=== PATIENT | male | born 1995 | race Caucasian/White ===

== ENCOUNTER 2018-01-09 06:04 | Emergency (ER) | payer OTHER ==
[~2018-01-09] VITALS: Ht 162.6 cm; Wt 64.5 kg
[2018-01-09 06:12] VITALS: Ht 162.6 cm; Wt 64.5 kg
[2018-01-09] MEDS ORDERED: ACETAMINOPHEN 500 MG TAB PO STA (06:21)
[2018-01-09] MEDS ORDERED: ACETAMINOPHEN 500 MG TAB PO ONE (06:23)
[2018-01-09] MEDS ORDERED: ONDANSETRON 4MG OD TAB PO STA (06:42)
[2018-01-09] MEDS ORDERED: KETOROLAC TROMETHAMINE 60 MG/2 ML VIAL IM STA (06:42)
[2018-01-09] MEDS ORDERED: COUGH DROP (SUGAR FREE) LOZ 24 LOZ/1 BOX LOZ STA (06:42)
[2018-01-09 06:54] LABS: INFLUENZA B ANTIGEN Neg for Influ B (NEG)
--- NOTE | 2018-01-09 06:55 | DIAGNOSTIC IMAGING REPORT ---
CHEST ONE VIEW PORTABLE CLINICAL HISTORY: Fever, cough, coarse breath sounds. COMPARISON STUDY: No previous studies for comparison. FINDINGS: The cardiac and mediastinal contours are normal. There is no evidence of focal pulmonary consolidation. There is no evidence of failure. No pleural effusions are visualized.[ There are minimal basilar atelectatic changes. IMPRESSION: No active disease in the chest. Electronically signed by: Daniel Garay M.D. 01/09/2018 6:54 AM Dictated Date/Time: 01/09/2018 6:53 AM
--- NOTE | 2018-01-09 06:59 | EMERGENCY ROOM VISIT NOTE ---
History Report prepared by Yayo: Josie Gold Under the Supervision of: Dr. Rodney Fuentes M.D. First contact with patient: 06:33 Chief Complaint: FLU LIKE SX Stated Complaint: SORE THROAT,WHEEZING,HEADACHE,FEVER,CHILLS,NAUSEA History of Present Illness The patient is a 22 year old white male with a past medical history of umbilical hernia who presents to the ED with a cc of flu-like symptoms beginning Saturday, five days ago. Positive nausea, nasal drainage, sore throat , productive cough, body aches, and chills. Negative coughing up blood, vomiting , abdominal pain, leg swelling. The patient reports his symptoms worsened over the past 24 hours. He notes using Dleisa Cory Cold and Flu and a Zycan tablet with minimal relief. The patient reports occasional alcohol use, but denies any drug or tobacco use. The patient is a [employer] student. He reports sick contact over the past weekend. Source of History: patient Onset: five days ago Position: other (generalized) Quality: other (flu like symptoms) Timing: worsening Associated Symptoms: + chills, + sorethroat, + cough, + nausea, No vomiting , No abdominal pain Review of Systems See HPI for pertinent positives and negatives. A total of ten systems were reviewed and were otherwise negative. Past Medical & Surgical Medical Problems: (1) Umbilical hernia Family History Patient reports no known family medical history. Social History Smoking Status: Never Smoker Alcohol Use: occasionally Drug Use: none Housing Status: lives with roommate Occupation Status: [employer] student Current/Historical Medications Scheduled Prednisone (Prednisone), 50 MG PO DAILY Scheduled PRN Ondansetron Hcl (Zofran), 1 TAB PO Q4H PRN for Nausea Allergies Coded Allergies: No Known Allergies (Unverified , 01/09/18) Physical Exam Vital Signs Date Time Temp Pulse Resp B/P (MAP) Pulse Ox O2 Delivery O2 Flow Rate FiO2 01/09/18 06:12 38.9 101 16 108/55 95 Room Air Physical Exam GENERAL: Awake, alert, well-appearing, NAD HENT: Normocephalic, atraumatic. Posterior pharynx clear, no tonsillar or uvular swelling/deviation. EYES: Normal conjunctiva. Sclera non-icteric. NECK: Supple. No nuchal rigidity. FROM. RESPIRATORY: Mild coarse BS R chest, no wheezing CARDIAC: RRR, no MRG ABDOMEN: Soft, NTND, BS+ MSK: No chest wall TTP, no LE edema NEURO: GCS 15, CN 2-12 intact, moves all 4s on command SKIN: No rash or jaundice noted. Medical Decision & Procedures Laboratory Results Test 01/09/18 06:27 Influenza Type A Antigen Neg for Influ A (NEG) Influenza Type B Antigen Neg for Influ B (NEG) Laboratory results reviewed by me Medications Administered Medications (Trade) Dose Ordered Sig/Keny Route Start Time Stop Time Status Last Admin Dose Admin Acetaminophen (Tylenol Tab) 1,000 mg STK-MED ONCE PO 01/09/18 06:23 01/09/18 06:24 DC 01/09/18 06:26 1,000 MG Ketorolac Tromethamine (Toradol Inj) 60 mg NOW STAT IM 01/09/18 06:42 01/09/18 06:44 DC 01/09/18 06:57 60 MG Ondansetron HCl (Zofran Odt) 4 mg NOW STAT PO 01/09/18 06:42 01/09/18 06:44 DC 01/09/18 06:53 4 MG Menthol (Nice Carlos) 1 carlos NOW STAT CARLOS 01/09/18 06:42 01/09/18 06:44 DC 01/09/18 06:54 1 CARLOS ED Course 0637: The patient was evaluated in room B2. A complete history and physical exam was performed. 0702: I updated the patient on his test results. He is resting comfortably. 0711: I reevaluated the patient. Discussed results and discharge instructions: He verbalized understanding and agreement. The patient is ready for discharge. Medical Decision The patient is a 22 year old white male with a past medical history of umbilical hernia who presents to the ED with a cc of flu-like symptoms beginning Saturday, five days ago. Nursing notes reviewed. Ancillary studies and prior records reviewed. Differential diagnosis: Etiologies such as viral syndrome, otitis, pharyngitis, pneumonia, influenza, meningitis, urinary tract infection, sepsis, bacteremia, as well as others were entertained. Patient was seen and evaluated the bedside. Patient been having some flulike symptoms ongoing since Saturday. Patient does feel that his symptoms have been worse within the last 24 hours. Patient has had some mild cough, body aches, and headaches along with some fever. Patient has taken some cold and flu medication but most recently without much relief. On exam patient did have some mild coarse breath sounds and notable cough. Patient's posterior pharynx clear. Patient did have a chest x-ray and a flu swab completed. Flu is negative chest x-ray is clear. No evidence for pneumonia. The patient otherwise is fairly well-appearing and is nontoxic. I do not believe that he requires further inpatient or treatment here in the emergency department. The patient was given Toradol, Tylenol, and Zofran. Patient was able tolerate p.o. without issue. Patient was informed of the findings. The patient was told to avoid things like alcohol and to hydrate liberally with clear liquids. He was also told to continue Motrin and Tylenol. Patient was deemed suitable for outpatient follow- up and treatment at this time. No signs of meningismus. Patient was given strict follow-up, discharge, and return precautions. All questions were answered. Patient was deemed suitable for outpatient follow-up at this time. Patient agreed with the plan of care and was safely discharged home. Medication Reconcilliation Current Medication List: was personally reviewed by me Blood Pressure Screening Patient's blood pressure: Normal blood pressure Impression Primary Impression: Influenza-like symptoms Additional Impressions: Upper respiratory infection Acute bronchitis Scribe Attestation The scribe's documentation has been prepared under my direction and personally reviewed by me in its entirety. I confirm that the note above accurately reflects all work, treatment, procedures, and medical decision making performed by me. Departure Information Dispostion Home / Self-Care Prescriptions Ondansetron Hcl (ZOFRAN) 4 Mg Tab 1 TAB PO Q4H Y for Nausea for 3 Days, #20 TAB 2 Refills Prov: Rodney Fuentes M.D. 01/09/18 Prednisone (PREDNISONE) 50 Mg Tab 50 MG PO DAILY for 5 Days, #5 TAB Prov: Rodney Fuentes M.D. 01/09/18 Referrals No Doctor, Assigned (PCP) Forms HOME CARE DOCUMENTATION FORM, IMPORTANT VISIT INFORMATION Patient Instructions ED Upper Resp Infec No Abx Tx, My [facility] Additional Instructions Please return to the emergency department if you have worsening or recurrent symptoms not amenable to at-home treatment. Please call for a follow-up appointment with her primary care physician. Please take your medications as prescribed. If you have other concerns and/or complaints please feel free to also call your primary care physician's office or return the ED for further evaluation, management, and treatment. Please take your steroids preferably in the morning and with food as they may cause some upset stomach and cause you to be very awake and alert. You may take 800 mg Ibuprofen every 6 hours as needed for pain/fever with food. You may take tylenol 1000 mg every 6 hours as needed for pain/fever. You may take motrin and tylenol separately or at the same time. Take your medications as prescribed. You have been examined and treated today on an emergency basis only. This is not a substitute for, or an effort to provide, complete comprehensive medical care. It is impossible to recognize and treat all injuries or illnesses in a single emergency department visit. It is therefore important that you follow up closely with [facility], your PCP, and/or your specialist(s). Call as soon as possible for an appointment. Thank you for your time and consideration. I look forward to speaking with you again soon. Please don't hesitate to call us if you have any questions. Problem Qualifiers Additional Impressions: Upper respiratory infection URI type: unspecified viral URI Qualified Codes: J06.9 - Acute upper respiratory infection, unspecified Acute bronchitis Bronchitis organism: unspecified organism Qualified Codes: J20.9 - Acute bronchitis, unspecified
[2018-01-09] MEDS ORDERED: ONDA4TAB65 PO (07:02)
[2018-01-09] MEDS ORDERED: PRED50TA PO (07:02)
[2018-01-09 07:16] VITALS: BP 133/62; PULSE 85; TEMP 37.5; O2SAT 96
== END 2018-01-09 07:17 | disposition home or self-care (01) ==
LOC: C.EDB 06:06
DX: R68.89 Other general symptoms and signs (principal); J06.9 Acute upper respiratory infection, unspecified; J20.9 Acute bronchitis, unspecified